=== PATIENT | male | born 1950 | race Caucasian/White ===

== ENCOUNTER 2017-05-16 16:43 | Emergency (ER) | payer OTHER, MEDICARE ==
[2017-05-16 16:53] VITALS: TEMP 98.5
[2017-05-16] MEDS ORDERED: PROPARACAINE 0.5% OPHTH DROPS 15 ML BTL LEFT EYE STA (17:21)
[2017-05-16] MEDS ORDERED: MOXIFLOXACIN HCL 0.5% DROPS 3 ML BTL LEFT EYE ONE (17:43)
--- NOTE | 2017-05-16 17:43 | ED ---
Eye Problem HPI - General Chief complaint: Eye Problems Stated complaint: Eye Problems Time Seen by Provider: 05/16/17 16:52 Source: patient Mode of arrival: ambulatory Limitations: no limitations - History of Present Illness Initial comments: 66 year oldcomplaining of left eye irritation for the last day. Patient states he was cleaning his windows and something fell in his eye and he tried to flush it out. Patient states he still had irritations a went to urgent care was put on tobramycin. Patient states it did look in his eye for an abrasion and nothing was noted. Patient states is getting worse with straining water very tender and scratchy and irritated feeling. Patient states it is sensitive to the light but no visual changes. No mucousy drainage. - Related Data Home Medications Medication Instructions Recorded Confirmed No Known Home Medications [No 05/16/17 05/16/17 Known Home Medications] Allergies Allergy/AdvReac Type Severity Reaction Status Date / Time No Known Allergies Allergy Verified 05/16/17 16:53 Review of Systems ROS Statement: Those systems with pertinent positive or pertinent negative responses have been documented in the HPI. ROS Other: All systems not noted in ROS Statement are negative. Constitutional: Denies: fever Eyes: Reports: eye pain (Left sided with redness and drainage), eye discharge ( left side). Denies: vision change Past Medical History Past Medical History: No Reported History History of Any Multi-Drug Resistant Organisms: None Reported Additional Past Surgical History / Comment(s): neck surgery Past Psychological History: No Psychological Hx Reported Smoking Status: Never smoker Past Alcohol Use History: Occasional Past Drug Use History: None Reported General Exam Limitations: no limitations General appearance: alert, in no apparent distress Eye exam: Present: PERRL, EOMI, conjunctival injection (left). Absent: scleral icterus, periorbital swelling Pupils: Present: normal accommodation ENT exam: Present: normal exam, mucous membranes moist Neck exam: Present: normal inspection. Absent: tenderness, meningismus, lymphadenopathy Course Vital Signs 05/16/17 16:50 Temperature 98.5 F Pulse Rate 89 Respiratory 18 Rate Blood Pressure 158/83 O2 Sat by Pulse 98 Oximetry Procedures - Procedures Initial comment: patient was prepped with normal saline proparacaine and fluorescein. One small abrasion noted around 10:00 in the left eye. No other abrasions or foreign bodies were noted 1 drop of Vigamox was given patient tolerated it well. Medical Decision Making - Medical Decision Making after visualizing a corneal abrasion patient will be still continuing antibiotic however unable change it from tobramycin to Vigamox at this time. Patient should follow-up with ophthalmology on Thursday for further evaluation. Patient to return sooner if any problems. Disposition Clinical Impression: Corneal abrasion, left Disposition: HOME SELF-CARE Condition: Good Instructions: Abrasion (ED) Referrals: Danilo Flores MD [Primary Care Provider] - 1-2 days Andrez Peñaloza MD [STAFF PHYSICIAN] - 1-2 days Time of Disposition: 17:51
[2017-05-16 18:04] VITALS: BP 136/68; PULSE 78; RESP 20
== END 2017-05-16 18:04 | disposition home or self-care (01) ==
LOC: EC 16:43
DX: S05.02XA Injury of conjunctiva and corneal abrasion without foreign body, left eye, initial encounter (principal); W22.8XXA Striking against or struck by other objects, initial encounter
CPT/HCPCS: 99283

== ENCOUNTER 2020-05-16 17:45 | Emergency (ER) | payer MEDICARE, OTHER ==
[2020-05-16] MEDS ORDERED: SODIUM CHLORIDE 0.9% 1,000 ML IV STA ×2 (18:02)
[2020-05-16] MEDS ORDERED: SODIUM CHLORIDE 0.9% 500 ML 500 ML IV STA (18:02)
--- NOTE | 2020-05-16 18:03 | ED ---
Syncope HPI - General Chief Complaint: Syncope Stated Complaint: Syncope Time Seen by Provider: 05/16/20 18:00 Source: patient, EMS, RN notes reviewed, old records reviewed Mode of arrival: EMS Limitations: no limitations - History of Present Illness Initial Comments: This is a 69-year-old male DF for evaluation of a near syncopal event. Patient did golf today with pain with some friends after [place] and almost passed out will get into his chair go to the bathroom patient has no recent travel history or sick contacts and currently is without complaint no headache chest pain shortness of breath or abdominal pain. Patient has had 2 episodes of to the syncope prior to his life. MD Complaint: almost passed out, other (Near syncopal event) -: hour(s) Prodromal Symptoms: lightheaded, diaphoresis -: second(s) Witnessed: yes - by bystander Injuries Sustained Associated with Event: None Current Symptoms: back to baseline History: previous syncopal episode Context: standing up Treatments Prior to Arrival: none - Related Data Home Medications Medication Instructions Recorded Confirmed No Known Home Medications 05/16/17 05/16/17 Allergies Allergy/AdvReac Type Severity Reaction Status Date / Time No Known Allergies Allergy Verified 05/16/17 16:53 Review of Systems ROS Statement: Those systems with pertinent positive or pertinent negative responses have been documented in the HPI. ROS Other: All systems not noted in ROS Statement are negative. Past Medical History Past Medical History: Hypertension History of Any Multi-Drug Resistant Organisms: None Reported Additional Past Surgical History / Comment(s): neck surgery Past Psychological History: No Psychological Hx Reported Smoking Status: Never smoker Past Alcohol Use History: Daily Past Drug Use History: Marijuana General Exam Limitations: no limitations General appearance: alert, in no apparent distress Head exam: Present: atraumatic, normocephalic, normal inspection Eye exam: Present: normal appearance, PERRL, EOMI. Absent: scleral icterus, conjunctival injection, periorbital swelling ENT exam: Present: normal exam, mucous membranes moist Neck exam: Present: normal inspection. Absent: tenderness, meningismus, lymphadenopathy Respiratory exam: Present: normal lung sounds bilaterally. Absent: respiratory distress, wheezes, rales, rhonchi, stridor Cardiovascular Exam: Present: regular rate, normal rhythm, normal heart sounds. Absent: systolic murmur, diastolic murmur, rubs, gallop, clicks GI/Abdominal exam: Present: soft, normal bowel sounds. Absent: distended, tenderness, guarding, rebound, rigid Extremities exam: Present: normal inspection, full ROM, normal capillary refill. Absent: tenderness, pedal edema, joint swelling, calf tenderness Back exam: Present: normal inspection Neurological exam: Present: alert, oriented X3, CN II-XII intact Psychiatric exam: Present: normal affect, normal mood Skin exam: Present: warm, dry, intact, normal color. Absent: rash Course Vital Signs 05/16/20 17:46 Temperature 96.9 F L Pulse Rate 64 Respiratory 17 Rate Blood Pressure 153/82 O2 Sat by Pulse 98 Oximetry - Reevaluation(s) Reevaluation #1: 05/16/20 19:12 Medical records reviewed Reevaluation #2: 05/16/20 19:12 Patient feels well here in the ER with no acute complaints Reevaluation #3: 05/16/20 19:12 Patient informed results no recurrent syncope here in the ER EKG Findings - EKG Comments: EKG Findings:: EKG shows sinus a 63 TN 144 QRS 92 QTC 419 Medical Decision Making - Lab Data Result diagrams: 05/16/20 18:17 05/16/20 18:17 Lab Results 05/16/20 05/16/20 05/16/20 Range/Units 18:17 18:17 18:17 WBC 6.1 (3.8-10.6) k/uL RBC 4.68 (4.30-5.90) m/uL Hgb 14.5 (13.0-17.5) gm/dL Hct 43.2 (39.0-53.0) % MCV 92.3 (80.0-100.0) fL MCH 30.9 (25.0-35.0) pg MCHC 33.4 (31.0-37.0) g/dL RDW 13.1 (11.5-15.5) % Plt Count 168 (150-450) k/uL Neutrophils % 73 % Lymphocytes % 18 % Monocytes % 6 % Eosinophils % 1 % Basophils % 0 % Neutrophils # 4.5 (1.3-7.7) k/uL Lymphocytes # 1.1 (1.0-4.8) k/uL Monocytes # 0.3 (0-1.0) k/uL Eosinophils # 0.1 (0-0.7) k/uL Basophils # 0.0 (0-0.2) k/uL PT 10.4 (9.0-12.0) sec INR 1.0 (<1.2) APTT 20.1 L (22.0-30.0) sec D-Dimer 0.41 (<0.60) mg/L FEU Sodium 136 L (137-145) mmol/L Potassium 4.1 (3.5-5.1) mmol/L Chloride 105 (98-107) mmol/L Carbon Dioxide 23 (22-30) mmol/L Anion Gap 8 mmol/L BUN 20 (9-20) mg/dL Creatinine 1.04 (0.66-1.25) mg/dL Est GFR (CKD-EPI)AfAm 84 (>60 ml/min/1.73 sqM) Est GFR (CKD-EPI)NonAf 72 (>60 ml/min/1.73 sqM) Glucose 164 H (74-99) mg/dL Calcium 8.7 (8.4-10.2) mg/dL Magnesium 1.9 (1.6-2.3) mg/dL Total Bilirubin 0.7 (0.2-1.3) mg/dL AST 30 (17-59) U/L ALT 24 (4-49) U/L Alkaline Phosphatase 41 (38-126) U/L Creatine Kinase 208 H (55-170) U/L CK-MB (CK-2) (0.0-2.4) ng/mL Troponin I (0.000-0.034) ng/mL Total Protein 6.4 (6.3-8.2) g/dL Albumin 4.0 (3.5-5.0) g/dL 05/16/20 Range/Units 18:17 WBC (3.8-10.6) k/uL RBC (4.30-5.90) m/uL Hgb (13.0-17.5) gm/dL Hct (39.0-53.0) % MCV (80.0-100.0) fL MCH (25.0-35.0) pg MCHC (31.0-37.0) g/dL RDW (11.5-15.5) % Plt Count (150-450) k/uL Neutrophils % % Lymphocytes % % Monocytes % % Eosinophils % % Basophils % % Neutrophils # (1.3-7.7) k/uL Lymphocytes # (1.0-4.8) k/uL Monocytes # (0-1.0) k/uL Eosinophils # (0-0.7) k/uL Basophils # (0-0.2) k/uL PT (9.0-12.0) sec INR (<1.2) APTT (22.0-30.0) sec D-Dimer (<0.60) mg/L FEU Sodium (137-145) mmol/L Potassium (3.5-5.1) mmol/L Chloride (98-107) mmol/L Carbon Dioxide (22-30) mmol/L Anion Gap mmol/L BUN (9-20) mg/dL Creatinine (0.66-1.25) mg/dL Est GFR (CKD-EPI)AfAm (>60 ml/min/1.73 sqM) Est GFR (CKD-EPI)NonAf (>60 ml/min/1.73 sqM) Glucose (74-99) mg/dL Calcium (8.4-10.2) mg/dL Magnesium (1.6-2.3) mg/dL Total Bilirubin (0.2-1.3) mg/dL AST (17-59) U/L ALT (4-49) U/L Alkaline Phosphatase (38-126) U/L Creatine Kinase (55-170) U/L CK-MB (CK-2) 3.7 H (0.0-2.4) ng/mL Troponin I <0.012 (0.000-0.034) ng/mL Total Protein (6.3-8.2) g/dL Albumin (3.5-5.0) g/dL Disposition Clinical Impression: Near syncope Disposition: HOME SELF-CARE Condition: Good Instructions (If sedation given, give patient instructions): Near Syncope (ED) Is patient prescribed a controlled substance at d/c from ED?: No Referrals: Danilo Flores MD [Primary Care Provider] - 1-2 days
[2020-05-16 18:34] LABS: Basophils % (A) 0 %; Eosinophils # (A) 0.1 k/uL (0-0.7); Eosinophils % (A) 1 %; HCT 43.2 % (39.0-53.0); HGB 14.5 gm/dL (13.0-17.5); Lymphocytes # (A) 1.1 k/uL (1.0-4.8); Lymphocytes % (A) 18 %; MCH 30.9 pg (25.0-35.0); MCHC 33.4 g/dL (31.0-37.0); MCV 92.3 fL (80.0-100.0); Mean Platelet Volume 7.6; Monocytes # (A) 0.3 k/uL (0-1.0); Monocytes % (A) 6 %; Neutrophils # (A) 4.5 k/uL (1.3-7.7); Neutrophils % (A) 73 %; Platelet Count 168 k/uL (150-450); RBC 4.68 m/uL (4.30-5.90); RDW 13.1 % (11.5-15.5); WBC 6.1 k/uL (3.8-10.6)
[2020-05-16 18:45] LABS: Calcium 8.7 mg/dL (8.4-10.2); Magnesium 1.9 mg/dL (1.6-2.3); Potassium 4.1 mmol/L (3.5-5.1); Total Bilirubin 0.7 mg/dL (0.2-1.3); Total Protein 6.4 g/dL (6.3-8.2)
[2020-05-16 18:57] LABS: Creatine Kinase MB 3.7 ng/mL (0.0-2.4); Troponin I <0.012 ng/mL (0.000-0.034)
[2020-05-16 18:59] LABS: D-Dimer 0.41 mg/L FEU (<0.60); Prothrombin Time 10.4 sec (9.0-12.0)
[2020-05-16 19:06] LABS: Partial Thromboplastin Time 20.1 sec (22.0-30.0)
[2020-05-16 20:01] VITALS: BP 122/79; PULSE 60; RESP 18; TEMP 97.3
== END 2020-05-16 20:00 | disposition home or self-care (01) ==
LOC: EC 17:45
DX: R55 Syncope and collapse (principal); R42 Dizziness and giddiness; R61 Generalized hyperhidrosis
CPT/HCPCS: 36415; 80053; 82550; 82553; 83735; 84484; 85025; 85379; 85610; 85730; 93005; 96360; 99285

== ENCOUNTER 2021-04-22 21:22 | Emergency (ER) | payer MEDICARE ==
[2021-04-22 21:27] VITALS: RESP 18
--- NOTE | 2021-04-22 22:03 | ED ---
Chest Pain HPI - General Chief Complaint: Chest Pain Stated Complaint: Chest Pain Time Seen by Provider: 04/22/21 21:41 Source: patient, RN notes reviewed, old records reviewed Mode of arrival: wheelchair Limitations: no limitations - History of Present Illness Initial Comments: This is a 70-year-old male to the ER for evaluation of some substernal disc omfort left and right inferior arm discomfort sweating. Symptoms are just diffuse and resolve slightly after while he was getting ready for bed. Patient presents to the ER for evaluation. History of high blood pressure he has had recently elevated blood sugar and will start on metformin. Patient states that for make some uneasiness stomach with some queasiness and cramping. Otherwise been feeling well no fatigue no other complaints MD Complaint: chest pain, other (Bilateral arm paresthesias) -: minutes(s) Onset: during rest Pain Location: substernal Pain Radiation: RUE, LUE Severity: mild Severity scale (1-10): 2 Quality: tightness Consistency: intermittent, now resolved Improves With: nothing Worsens With: nothing Context: other (none) Anginal Symptoms: diaphoresis Other Symptoms: palpitations Treatments Prior to Arrival: none - Related Data Home Medications Medication Instructions Recorded Confirmed Atorvastatin Calcium [Lipitor] 20 mg PO HS 04/22/21 04/22/21 Bisoprol/Hydrochlorothiazide [Ziac 1 tab PO DAILY 04/22/21 04/22/21 10-6.25 MG] Celecoxib [CeleBREX] 200 mg PO DAILY 04/22/21 04/22/21 Losartan Potassium [Cozaar] 50 mg PO DAILY 04/22/21 04/22/21 metFORMIN HCL [Glucophage] 1,000 mg PO BID-W/MEALS 04/22/21 04/22/21 Allergies Allergy/AdvReac Type Severity Reaction Status Date / Time No Known Allergies Allergy Verified 04/22/21 22:37 Review of Systems ROS Statement: Those systems with pertinent positive or pertinent negative responses have been documented in the HPI. ROS Other: All systems not noted in ROS Statement are negative. EKG Findings - EKG Comments: EKG Findings:: EKG is sinus bradycardia 57, [place] 144 QRS 80 QTC 390 Past Medical History Past Medical History: Hypertension History of Any Multi-Drug Resistant Organisms: None Reported Additional Past Surgical History / Comment(s): neck surgery Past Psychological History: No Psychological Hx Reported Smoking Status: Never smoker Past Alcohol Use History: Daily Past Drug Use History: Marijuana General Exam Limitations: no limitations General appearance: alert, in no apparent distress Head exam: Present: atraumatic, normocephalic, normal inspection Eye exam: Present: normal appearance, PERRL, EOMI. Absent: scleral icterus, conjunctival injection, periorbital swelling ENT exam: Present: normal exam, mucous membranes moist Neck exam: Present: normal inspection. Absent: tenderness, meningismus, lymphadenopathy Respiratory exam: Present: normal lung sounds bilaterally. Absent: respiratory distress, wheezes, rales, rhonchi, stridor Cardiovascular Exam: Present: regular rate, normal rhythm, normal heart sounds. Absent: systolic murmur, diastolic murmur, rubs, gallop, clicks GI/Abdominal exam: Present: soft, normal bowel sounds. Absent: distended, tenderness, guarding, rebound, rigid Extremities exam: Present: normal inspection, full ROM, normal capillary refill. Absent: tenderness, pedal edema, joint swelling, calf tenderness Back exam: Present: normal inspection Neurological exam: Present: alert, oriented X3, CN II-XII intact Psychiatric exam: Present: normal affect, normal mood Skin exam: Present: warm, dry, intact, normal color. Absent: rash Course Vital Signs 04/22/21 21:24 Temperature 97.7 F Pulse Rate 60 Respiratory 18 Rate Blood Pressure 133/73 O2 Sat by Pulse 98 Oximetry - Reevaluation(s) Reevaluation #1: 04/22/21 23:34 Medical record is reviewed Reevaluation #2: 04/22/21 23:34 Patient has remained a symptomatically throughout ER stay Reevaluation #3: 04/22/21 23:35 Patient feels good for discharge home Reevaluation #4: 04/22/21 23:35 Patient family informed results and questions answered - Consultations Consultation #1: Spoke with Dr. Flores will keep follow-up on patient Chest Pain MDM - MDM 70 male who does have history of high blood pressure no, recently diagnosed is a prediabetic and started on metformin coming in with some on easiness, feelings of diaphoresis and arm pain. Patient's EKG and troponin are negative here. Patient is a symptomatically felt ER stay and prefers discharge Disposition Clinical Impression: Atypical chest pain Disposition: HOME SELF-CARE Condition: Good Instructions (If sedation given, give patient instructions): Chest Pain (ED) Is patient prescribed a controlled substance at d/c from ED?: No Referrals: Danilo Flores MD [Primary Care Provider] - 1-2 days
[2021-04-22 22:16] LABS: Basophils % (A) 1 %; Eosinophils # (A) 0.1 k/uL (0-0.7); Eosinophils % (A) 3 %; HCT 42.7 % (39.0-53.0); HGB 14.4 gm/dL (13.0-17.5); Lymphocytes # (A) 1.3 k/uL (1.0-4.8); Lymphocytes % (A) 28 %; MCH 31.4 pg (25.0-35.0); MCHC 33.7 g/dL (31.0-37.0); MCV 93.2 fL (80.0-100.0); Mean Platelet Volume 7.8; Monocytes # (A) 0.3 k/uL (0-1.0); Monocytes % (A) 7 %; Neutrophils # (A) 2.9 k/uL (1.3-7.7); Neutrophils % (A) 59 %; Platelet Count 195 k/uL (150-450); RBC 4.58 m/uL (4.30-5.90); RDW 13.2 % (11.5-15.5); WBC 4.8 k/uL (3.8-10.6)
[2021-04-22 22:24] LABS: Partial Thromboplastin Time 24.1 sec (22.0-30.0); Prothrombin Time 10.6 sec (9.0-12.0)
[2021-04-22 22:28] LABS: ALT 24 U/L (4-49); AST 28 U/L (17-59); African American GFR (CKD) >90 (>60 ml/min/1.73 sqM); Albumin 4.1 g/dL (3.5-5.0); Alkaline Phosphatase 40 U/L (38-126); Anion Gap 9 mmol/L; Blood Urea Nitrogen 39 mg/dL (9-20); Calcium 9.4 mg/dL (8.4-10.2); Carbon Dioxide 28 mmol/L (22-30); Chloride 102 mmol/L (98-107); Creatine Kinase 110 U/L (55-170); Glucose 113 mg/dL (74-99); Lipase 176 U/L (23-300); Magnesium 1.6 mg/dL (1.6-2.3); Non-African American GFR(CKD) 80 (>60 ml/min/1.73 sqM); Potassium 4.1 mmol/L (3.5-5.1); Sodium 139 mmol/L (137-145); Total Bilirubin 0.5 mg/dL (0.2-1.3); Total Protein 6.5 g/dL (6.3-8.2)
--- NOTE | 2021-04-22 23:22 | XR ---
EXAMINATION TYPE: XR chest 2V DATE OF EXAM: 04/22/2021 COMPARISON: NONE HISTORY: Chest pain TECHNIQUE: 2 views FINDINGS: Heart and mediastinum are normal. Lungs are clear of infiltrate. There is no heart failure. There are chest leads. There is cervical spine fusion surgery. IMPRESSION: No active cardiopulmonary disease. Normal heart.
[2021-04-22 23:58] VITALS: BP 122/80; PULSE 61; TEMP 98.1
[2021-04-23 15:41] LABS: Hemoglobin A1C 5.6 % (4.0-6.0)
== END 2021-04-22 23:52 | disposition home or self-care (01) ==
LOC: EC 21:22
DX: R07.89 Other chest pain (principal); I10 Essential (primary) hypertension; F12.90 Cannabis use, unspecified, uncomplicated; Z79.84 Long term (current) use of oral hypoglycemic drugs; Z79.1 Long term (current) use of non-steroidal anti-inflammatories (NSAID); Z79.899 Other long term (current) drug therapy
CPT/HCPCS: 36415; 71046; 80053; 82550; 83036; 83690; 83735; 83880; 84484; 85025; 85610; 85730; 93005; 99285

== ENCOUNTER 2023-03-24 16:45 | Inpatient (IN) | payer MEDICARE ==
[2023-03-24 17:52] LABS: Basophils % (A) 0 %; Eosinophils # (A) 0.2 k/uL (0-0.7); Eosinophils % (A) 3 %; HCT 40.5 % (39.0-53.0); HGB 13.6 gm/dL (13.0-17.5); Lymphocytes # (A) 0.7 k/uL (1.0-4.8); Lymphocytes % (A) 10 %; MCH 30.6 pg (25.0-35.0); MCHC 33.6 g/dL (31.0-37.0); Mean Platelet Volume 7.3; Monocytes # (A) 0.5 k/uL (0-1.0); Monocytes % (A) 7 %; Neutrophils # (A) 5.1 k/uL (1.3-7.7); Neutrophils % (A) 78 %; Platelet Count 224 k/uL (150-450); RBC 4.45 m/uL (4.30-5.90); RDW 12.7 % (11.5-15.5); WBC 6.6 k/uL (3.8-10.6)
[2023-03-24 18:13] LABS: ALT 18 U/L (4-49); AST 20 U/L (17-59); African American GFR (CKD) 27 (>60 ml/min/1.73 sqM); Albumin 4.2 g/dL (3.5-5.0); Alkaline Phosphatase 67 U/L (38-126); Anion Gap 11 mmol/L; Blood Urea Nitrogen 44 mg/dL (9-20); Calcium 8.9 mg/dL (8.4-10.2); Carbon Dioxide 21 mmol/L (22-30); Chloride 106 mmol/L (98-107); Glucose 105 mg/dL (74-99); Non-African American GFR(CKD) 23 (>60 ml/min/1.73 sqM); Sodium 138 mmol/L (137-145); Total Bilirubin 0.4 mg/dL (0.2-1.3); Total Protein 7.5 g/dL (6.3-8.2)
--- NOTE | 2023-03-24 18:22 | ED ---
General Adult HPI - General Chief complaint: Recheck/Abnormal Lab/Rx Stated complaint: Recheck Time Seen by Provider: 03/24/23 17:55 Source: patient, RN notes reviewed, old records reviewed Mode of arrival: ambulatory Limitations: no limitations - History of Present Illness Initial comments: This is a 72-year-old male who presents emergency department after having gone to see his doctor and had blood work drawn. Dr. Hidalgo told the patient to go to the hospital because his renal failure. Patient states he went to see his doctor because over the last couple of weeks is becoming weaker and more fatigued and just tired overall. Patient denies any chest pain palpitations difficulty breathing shortness breath per patient denies any recent fever chills or cough per patient denies any dysuria hematuria urinary frequency. Patient denies any abdominal patient states he has been taking Celebrex for quite a while as well as taking angiotensin receptor sigrid. Patient denies any injury or trauma - Related Data Home Medications Medication Instructions Recorded Confirmed Losartan Potassium [Cozaar] 50 mg PO DAILY 04/22/21 03/24/23 Allergies Allergy/AdvReac Type Severity Reaction Status Date / Time No Known Allergies Allergy Verified 03/24/23 18:55 Review of Systems ROS Statement: Those systems with pertinent positive or pertinent negative responses have been documented in the HPI. ROS Other: All systems not noted in ROS Statement are negative. Past Medical History Past Medical History: Hypertension, Osteoarthritis (OA) History of Any Multi-Drug Resistant Organisms: None Reported Additional Past Surgical History / Comment(s): neck surgery Past Psychological History: No Psychological Hx Reported Smoking Status: Never smoker Past Alcohol Use History: Daily Past Drug Use History: Marijuana General Exam - General Exam Comments Initial Comments: GENERAL: Patient is well-developed and well-nourished. Patient is nontoxic and well-hydrated and is in no acute distress. ENT: Neck is soft and supple. No significant lymphadenopathy is noted. Oropharynx is clear. Moist mucous membranes. Neck has full range of motion without eliciting any pain. EYES: The sclera were anicteric and conjunctiva were pink and moist. Extraocular mov ements were intact and pupils were equal round and reactive to light. Eyelids were unremarkable. PULMONARY: Unlabored respirations. Good breath sounds bilaterally. No audible rales rhonchi or wheezing was noted. CARDIOVASCULAR: There is a regular rate and rhythm without any murmurs gallops or rubs. ABDOMEN: Soft and nontender with normal bowel sounds. SKIN: Skin is clear with no lesions or rashes and otherwise unremarkable. NEUROLOGIC: Patient is alert and oriented x3. Cranial nerves II through XII are grossly intact. Motor and sensory are also intact. Normal speech, volume and content. Symmetrical smile. MUSCULOSKELETAL: Normal extremities with adequate strength and full range of motion. No lower extremity swelling or edema. No calf tenderness. LYMPHATICS: No significant lymphadenopathy is noted PSYCHIATRIC: Normal psychiatric evaluation. Limitations: no limitations Course Vital Signs 03/24/23 17:03 Temperature 98.9 F Pulse Rate 74 Respiratory 20 Rate Blood Pressure 164/75 O2 Sat by Pulse 98 Oximetry Medical Decision Making - Medical Decision Making EKG was interpreted by myself shows a sinus rhythm at 75 bpm CO interval 147 100 one QT interval 346 QTC is 375 per patient's EKG shows no ST segment elevation or depression Was pt. sent in by a medical professional or institution (, PA, CHAIN MORTISER OPERATOR, urgent care, hospital, or intermediate...) When possible be specific @ -Patient's primary medical care doctor sent him into the hospital Did you speak to anyone other than the patient for history (EMS, parent, family, police, friend...)? What history was obtained from this source @ -No Did you review nursing and triage notes (agree or disagree)? Why? @ -I reviewed and agree with nursing and triage notes Were old charts reviewed (outside hosp., previous admission, EMS record, old EKG, old radiological studies, urgent care reports/EKG's, intermediate records)? Report findings @ -I reviewed prior lab work from prior charts on this patient Differential Diagnosis (chest pain, altered mental status, abdominal pain women, abdominal pain men, vaginal bleeding, weakness, fever, dyspnea, syncope, headache, dizziness, GI bleed, back pain, seizure, CVA, palpatations, mental health, musculoskeletal)? @ -Differential Weakness: Hypoglycemia, shock, sepsis, hyponatremia, anemia, acute renal failure, infection, VA, ETOH, adverse medicine reaction, overdose, stroke, this is not meant to be an all-inclusive list. EKG interpreted by me (3pts min.). @ -As above X-rays interpreted by me (1pt min.). @ -None done CT interpreted by me (1pt min.). @ -None done U/S interpreted by me (1pt. min.). @ -None done What testing was considered but not performed or refused? (CT, X-rays, U/S, labs)? Why? @ -None What meds were considered but not given or refused? Why? @ -None Did you discuss the management of the patient with other professionals (professionals i.e. Dr., PA, CHAIN MORTISER OPERATOR, lab, RT, psych nurse, social worker clinical, medical communication specialist, teacher, wildlife officer, disease case manager)? Give summary @ -I spoke with [facility] hospitalist and they agreed to admit the patient admitted the patient consult nephrology. Patient had no infection. Was smoking cessation discussed for >3mins.? @ -No Was critical care preformed (if so, how long)? @ -No Were there social determinants of health that impacted care today? How? (Homelessness, low income, unemployed, alcoholism, drug addiction, transpo rtation, low edu. Level, literacy, decrease access to med. care, shelter, rehab)? @ -No Was there de-escalation of care discussed even if they declined (Discuss DNR or withdrawal of care, Hospice)? DNR status @ -No What co-morbidities impacted this encounter? (DM, HTN, Smoking, COPD, CAD, Cancer, CVA, ARF, Chemo, Hep., AIDS, mental health diagnosis, sleep apnea, morbid obesity)? @ -None Was patient admitted / discharged? Hospital course, mention meds given and route, prescriptions, significant lab abnormalities, going to OR and other pertinent info. @ -Patient remained fatigued and weak during the ED stay the patient does not have any new symptoms. Patient's creatinine was 2.6 which is elevated from prior normal levels. Undiagnosed new problem with uncertain prognosis? @ -No Drug Therapy requiring intensive monitoring for toxicity (Heparin, Nitro, Insulin, Cardizem)? @ -No Were any procedures done? @ -No Diagnosis/symptom? @ -Acute renal failure Acute, or Chronic, or Acute on Chronic? @ -Acute Uncomplicated (without systemic symptoms) or Complicated (systemic symptoms)? @ -Complicated Side effects of treatment? @ -No Exacerbation, Progression, or Severe Exacerbation? @ -No Poses a threat to life or bodily function? How? (Chest pain, [place], VA, pneumonia, PE, COPD, DKA, ARF, appy, cholecystitis, CVA, Diverticulitis, Homicidal, Suicidal, threat to staff... and all critical care pts) @ -Yes this could lead to electrolyte abnormalities and arrhythmias - Lab Data Result diagrams: 03/24/23 17:30 03/24/23 17:30 Lab Results 03/24/23 03/24/23 03/24/23 Range/Units 17:30 17:30 18:11 WBC 6.6 (3.8-10.6) k/uL RBC 4.45 (4.30-5.90) m/uL Hgb 13.6 (13.0-17.5) gm/dL Hct 40.5 (39.0-53.0) % MCV 91.0 (80.0-100.0) fL MCH 30.6 (25.0-35.0) pg MCHC 33.6 (31.0-37.0) g/dL RDW 12.7 (11.5-15.5) % Plt Count 224 (150-450) k/uL MPV 7.3 Neutrophils % 78 % Lymphocytes % 10 % Monocytes % 7 % Eosinophils % 3 % Basophils % 0 % Neutrophils # 5.1 (1.3-7.7) k/uL Lymphocytes # 0.7 L (1.0-4.8) k/uL Monocytes # 0.5 (0-1.0) k/uL Eosinophils # 0.2 (0-0.7) k/uL Basophils # 0.0 (0-0.2) k/uL Sodium 138 (137-145) mmol/L Potassium 4.0 (3.5-5.1) mmol/L Chloride 106 (98-107) mmol/L Carbon Dioxide 21 L (22-30) mmol/L Anion Gap 11 mmol/L BUN 44 H (9-20) mg/dL Creatinine 2.62 H (0.66-1.25) mg/dL Est GFR (CKD-EPI)AfAm 27 (>60 ml/min/1.73 sqM) Est GFR (CKD-EPI)NonAf 23 (>60 ml/min/1.73 sqM) Glucose 105 H (74-99) mg/dL Calcium 8.9 (8.4-10.2) mg/dL Total Bilirubin 0.4 (0.2-1.3) mg/dL AST 20 (17-59) U/L ALT 18 (4-49) U/L Alkaline Phosphatase 67 (38-126) U/L Total Protein 7.5 (6.3-8.2) g/dL Albumin 4.2 (3.5-5.0) g/dL Urine Color Light Yellow Urine Appearance Clear (Clear) Urine pH 5.5 (5.0-8.0) Ur Specific [place] 1.015 (1.001-1.035) Urine Protein 1+ H (Negative) Urine Glucose (UA) 2+ H (Negative) Urine Ketones Negative (Negative) Urine Blood Small H (Negative) Urine Nitrite Negative (Negative) Urine Bilirubin Negative (Negative) Urine Urobilinogen <2.0 (<2.0) mg/dL Ur Leukocyte Esterase Negative (Negative) Urine RBC <1 (0-5) /hpf Urine WBC 2 (0-5) /hpf Urine Mucus Rare H (None) /hpf Disposition Clinical Impression: Acute renal failure Disposition: ADMITTED IP TO THIS HOSP Referrals: Jasmeet Hidalgo DO [Primary Care Provider] - 1-2 days Time of Disposition: 20:16
[2023-03-24 19:18] LABS: Appearance,Urine Clear (Clear); Bilirubin,Urine Negative (Negative); Blood,Urine Small (Negative); Color,Urine Light Yellow; Glucose,Urine (UA) 2+ (Negative); Ketones,Urine Negative (Negative); Leukocyte Esterase,Urine Negative (Negative); Mucus,Urine Rare /hpf; Nitrite,Urine Negative (Negative); PH, Urine 5.5 (5.0-8.0); Protein,Urine 1+ (Negative); RBC,Urine <1 /hpf (0-5); Specific Gravity,Urine 1.015 (1.001-1.035); Urobilinogen,Urine <2.0 mg/dL (<2.0); WBC,Urine 2 /hpf (0-5)
[2023-03-24] MEDS ORDERED: SODIUM CHLORIDE 0.9% 1,000 ML IV ONE (20:22)
[2023-03-25 10:01] LABS: African American GFR (CKD) 32 (>60 ml/min/1.73 sqM); Anion Gap 10 mmol/L; Blood Urea Nitrogen 37 mg/dL (9-20); Calcium 8.6 mg/dL (8.4-10.2); Carbon Dioxide 22 mmol/L (22-30); Chloride 107 mmol/L (98-107); Glucose 214 mg/dL (74-99); Non-African American GFR(CKD) 27 (>60 ml/min/1.73 sqM); Potassium 4.1 mmol/L (3.5-5.1); Sodium 139 mmol/L (137-145)
--- NOTE | 2023-03-25 13:48 | P.HPIM ---
History of Present Illness 72-year-old male was sent in because of elevated creatinine patient BUN was around 44 and creatinine was 2.62. Patient denied any nausea vomiting diarrhea patient recent creatinine is around 0.8. A she is found to have 1+ protein and protein in the urine patient does have glucose in the urine as well. no casts were seen Patient was started on IV fluids with the minimal improvement of serum creatinine from 2.6-2.28. Patient denied any oliguria. Patient doesn't have any symptoms at this time. Patient is on losartan for long time. Patient did did complain of for some episodes of dizziness whenever he gets up although his blood pressure is within normal limits. Orthostatic vitals will be obtained. REVIEW OF SYSTEMS: CONSTITUTIONAL: No fever, no malaise, no fatigue. HEENT: No recent visual problems or hearing problems. Denied any sore throat. CARDIOVASCULAR: No chest pain, orthopnea, PND, no palpitations, no syncope. PULMONARY: No shortness of breath, no cough, no hemoptysis. GASTROINTESTINAL: No diarrhea, no nausea, no vomiting, no abdominal pain. NEUROLOGICAL: No headaches, no weakness, no numbness. HEMATOLOGICAL: Denies any bleeding or petechiae. GENITOURINARY: Denies any burning micturition, frequency, or urgency. MUSCULOSKELETAL/RHEUMATOLOGICAL: Denies any joint pain, swelling, or any muscle pain. ENDOCRINE: Denies any polyuria or polydipsia. The rest of the 14-point review of systems is negative. PHYSICAL EXAMINATION: GENERAL: The patient is alert and oriented x3, not in any acute distress. Well developed, well nourished. HEENT: Pupils are round and equally reacting to light. EOMI. No scleral icterus. No conjunctival pallor. Normocephalic, atraumatic. No pharyngeal erythema. No thyromegaly. CARDIOVASCULAR: S1 and S2 present. No murmurs, rubs, or gallops. PULMONARY: Chest is clear to auscultation, no wheezing or crackles. ABDOMEN: Soft, nontender, nondistended, normoactive bowel sounds. No palpable organomegaly. MUSCULOSKELETAL: No joint swelling or deformity. EXTREMITIES: No cyanosis, clubbing, or pedal edema. NEUROLOGICAL: Gross neurological examination did not reveal any focal deficits. SKIN: No rashes. Assessment and plan -Acute renal failure: Possibly secondary to acute tubular necrosis may be secondary to hypotension, presently blood pressure is within normal limits will obtain orthostatic vitals. We will obtain renal ultrasound, urine random creat inine, urine random serum sodium, urine eosinophils, nephrology consultation. -Hypertension DVT prophylaxis: Early ambulation Past Medical History Past Medical History: Hypertension, Osteoarthritis (OA) History of Any Multi-Drug Resistant Organisms: None Reported Additional Past Surgical History / Comment(s): neck surgery Past Psychological History: No Psychological Hx Reported Smoking Status: Never smoker Past Alcohol Use History: Daily Additional Past Alcohol Use History / Comment(s): one drinks one drink with his for dinner usually a glass of wine Past Drug Use History: Marijuana Medications and Allergies Home Medications Medication Instructions Recorded Confirmed Type Losartan Potassium [Cozaar] 50 mg PO DAILY 04/22/21 03/24/23 History Allergies Allergy/AdvReac Type Severity Reaction Status Date / Time No Known Allergies Allergy Verified 03/24/23 18:55 Physical Exam Vitals: Vital Signs Temp Pulse Resp BP Pulse Ox 03/25/23 11:56 75 18 132/67 98 03/25/23 10:00 75 16 120/65 98 03/25/23 09:46 72 20 116/69 98 03/25/23 08:39 61 18 116/59 97 03/25/23 06:21 74 16 138/76 03/24/23 21:53 76 16 148/87 97 03/24/23 17:03 98.9 F 74 20 164/75 98 Intake and Output 03/24/23 03/25/23 03/25/23 22:59 06:59 14:59 Other: Weight 83.007 kg 83.007 kg Results CBC & Chem 7: 03/24/23 17:30 03/25/23 09:33 Labs: Abnormal Lab Results - Last 24 Hours (Table) 03/24/23 03/24/23 03/24/23 Range/Units 17:30 17:30 18:11 Lymphocytes # 0.7 L (1.0-4.8) k/uL Carbon Dioxide 21 L (22-30) mmol/L BUN 44 H (9-20) mg/dL Creatinine 2.62 H (0.66-1.25) mg/dL Glucose 105 H (74-99) mg/dL Urine Protein 1+ H (Negative) Urine Glucose (UA) 2+ H (Negative) Urine Blood Small H (Negative) Urine Mucus Rare H (None) /hpf 03/25/23 Range/Units 09:33 Lymphocytes # (1.0-4.8) k/uL Carbon Dioxide (22-30) mmol/L BUN 37 H (9-20) mg/dL Creatinine 2.28 H (0.66-1.25) mg/dL Glucose 214 H (74-99) mg/dL Urine Protein (Negative) Urine Glucose (UA) (Negative) Urine Blood (Negative) Urine Mucus (None) /hpf Thrombosis Risk Factor Assmnt - Choose All That Apply Each Risk Factor Represents 2 Points: Age 61-74 years Thrombosis Risk Factor Assessment Total Risk Factor Score: 2 Thrombosis Risk Factor Assessment Level: Low Risk
--- NOTE | 2023-03-25 20:02 | US ---
EXAMINATION TYPE: US kidneys/renal and bladder DATE OF EXAM: 03/25/2023 COMPARISON: NONE CLINICAL INDICATION: Male, 72 years old with history of PARI; pari EXAM MEASUREMENTS: Right Kidney: 11.8 x 5.9 x 5.6 cm Left Kidney: 13.5 x 5.7 x 6.9 cm Right Kidney: No hydronephrosis or masses seen Left Kidney: Echogenic area seen mid pole measuring 1.2 x 1.1 x 1.3cm Bladder: wnl. Limited due to being mostly empty. Bilateral Jets seen: No There is no evidence for hydronephrosis at this point in time. No masses are identified. The urin erika bladder is anechoic. Bilateral ureteral jets are seen. IMPRESSION: Nonobstructing calculus left kidney.
[2023-03-26] MEDS: SODIUM CHLORIDE 0.9% 1,000 ML IV SCH (07:00)
[2023-03-26] MEDS ORDERED: ACETAMINOPHEN TAB 325 MG TAB PO PRN (10:19)
[2023-03-26 11:00] LABS: BUN/Creat Ratio 13.96 Ratio (12.00-20.00); Blood Urea Nitrogen 32.1 mg/dL (9.0-27.0); Calcium 8.6 mg/dL (8.7-10.3); Carbon Dioxide 22.5 mmol/L (21.6-31.8); Chloride 109 mmol/L (96-109); Glucose 130 mg/dL (70-110); Potassium 3.9 mmol/L (3.5-5.5); Sodium 141 mmol/L (135-145)
--- NOTE | 2023-03-26 13:26 | P.NPCON ---
History of Present Illness - Reason for Consult acute renal failure - History of Present Illness Patient is a 72-year-old male with history of hypertension who is advised admission due to abnormal labs as outpatient. Serum creatinine was elevated at 2.6 mg/dL from a previous reading of 0.9 mg/dL in 2020. There is no previous history of kidney diseases Patient has been maintained on Celebrex and losartan for 3-4 years now. Blood pressure was not significantly low although a couple of readings of 1 16 mmHg for systolic is noted. Patient denies any urinary symptoms Patient states that he may have been working outside more than usual over the past few days. No history of nausea vomiting or diarrhea. Patient does report vague abdominal discomfort. Currently maintained on IV fluids and serum creatinine only improved slightly to 2.3 mg/dL. Ultrasound shows no evidence of hydronephrosis. Review of Systems As per HPI Past Medical History Past Medical History: Hypertension, Osteoarthritis (OA) History of Any Multi-Drug Resistant Organisms: None Reported Additional Past Surgical History / Comment(s): neck surgery Past Psychological History: No Psychological Hx Reported Smoking Status: Never smoker Past Alcohol Use History: Daily Additional Past Alcohol Use History / Comment(s): one drinks one drink with his for dinner usually a glass of wine Past Drug Use History: Marijuana Medications and Allergies Home Medications Medication Instructions Recorded Confirmed Type Losartan Potassium [Cozaar] 50 mg PO DAILY 04/22/21 03/24/23 History Allergies Allergy/AdvReac Type Severity Reaction Status Date / Time No Known Allergies Allergy Verified 03/24/23 18:55 Physical Exam Vitals: Vital Signs Temp Pulse Resp BP Pulse Ox 03/26/23 07:10 98.2 F 68 16 130/77 97 03/26/23 02:00 98.0 F 73 16 112/64 96 03/25/23 19:00 97.4 F L 78 16 137/68 97 03/25/23 18:00 97.7 F 78 18 137/73 98 03/25/23 13:35 97.6 F 73 18 128/70 98 Intake and Output 03/25/23 03/26/23 03/26/23 22:59 06:59 14:59 Intake Total 590 Balance 590 Intake: Oral 590 Other: Voiding Method Toilet Toilet # Voids 2 2 Patient is awake, alert oriented 3 No acute distress Examination of the heart S1 and S2 Examination of the lungs bilateral breath sounds are heard Abdomen is soft nontender Examination of lower extremities shows no evidence of edema BRAZER FURNACE exam grossly intact Results - Lab Results Most recent lab results Calcium 8.6 mg/dL (8.7-10.3) L 03/26/23 06:33 03/24/23 17:30 03/26/23 06:33 Assessment and Plan Assessment: 1. Acute kidney injury most likely related to Swan 2 inhibitor use in the setting of use of angiotensin receptor blockers with possible low blood pressure at home. Continue off of Celebrex and continue off of losartan as well. Ultrasound shows no evidence of obstruction and UA shows 1+ protein and trace blood. Continue with IV fluids 2. Hypertension with blood pressure Currently controlled. Continue off of angiotensin receptor blockers 3. Mild metabolic acidosis associated with acute kidney injury Plan: Continue with IV fluids Check urine for eosinophils Continue off of angiotensin receptor blockers and Swan 2 inhibitors. Avoid all NSAIDs Repeat labs in a.m. Avoid any other nephrotoxic agents Thank you for the consultation. We will continue to follow the patient with you during his hospitalization.
--- NOTE | 2023-03-26 16:49 | P.PN ---
Subjective Progress Note Date: 03/26/23 72-year-old male was sent in because of elevated creatinine patient BUN was around 44 and creatinine was 2.62. Patient denied any nausea vomiting diarrhea patient recent creatinine is around 0.8. A she is found to have 1+ protein and protein in the urine patient does have glucose in the urine as well. no casts were seen Patient was started on IV fluids with the minimal improvement of serum creatinine from 2.6-2.28. Patient denied any oliguria. Patient doesn't have any symptoms at this time. Patient is on losartan for long time. Patient did did complain of for some episodes of dizziness whenever he gets up although his blood pressure is within normal limits. Orthostatic vitals will be obtained. 03/26/2023 Patient is evaluated resting in bed. Nephrology on consultation. Patient continues with hydration and creatinine has slightly improved to 2.3. Urine eosinophils at 3. Abdomen/bladder ultrasound shows nonobstructive left renal calculus. Patient to be monitored overnight and f/u labs in AM. Continue to monitor for urinary retention. REVIEW OF SYSTEMS: CONSTITUTIONAL: No fever, no malaise, no fatigue. HEENT: No recent visual problems or hearing problems. Denied any sore throat. CARDIOVASCULAR: No chest pain, orthopnea, PND, no palpitations, no syncope. PULMONARY: No shortness of breath, no cough, no hemoptysis. GASTROINTESTINAL: No diarrhea, no nausea, no vomiting, no abdominal pain. NEUROLOGICAL: No headaches, no weakness, no numbness. PHYSICAL EXAMINATION: GENERAL: The patient is alert and oriented x3, not in any acute distress. Well developed, well nourished. HEENT: Pupils are round and equally reacting to light. EOMI. No scleral icterus. No conjunctival pallor. Normocephalic, atraumatic. No pharyngeal erythema. No thyromegaly. CARDIOVASCULAR: S1 and S2 present. No murmurs, rubs, or gallops. PULMONARY: Chest is clear to auscultation, no wheezing or crackles. ABDOMEN: Soft, nontender, nondistended, normoactive bowel sounds. No palpable organomegaly. MUSCULOSKELETAL: No joint swelling or deformity. EXTREMITIES: No cyanosis, clubbing, or pedal edema. NEUROLOGICAL: Gross neurological examination did not reveal any focal deficits. SKIN: No rashes. Assessment and plan -Acute renal failure: Possibly secondary to acute tubular necrosis may be se condary to hypotension, component of nephrotoxicity due to losartan -Hypertension currently normotensive -Osteoarthritis -Daily alcohol use with one glass of wine - DVT prophylaxis: Early ambulation Plan Continue off losartan and cox2 inhibitor at this time. Patient to continue on IV fluids and follow up AM labs. Nephrology following. The impression and plan of care has been dictated by Lo Ley, Nurse Practitioner as directed. Dr. Amie MD I have performed a history and physical examination and medical decision making of this patient, discussed the same with the dictator, and agree with the dictators assessment and plan as written, documented as a scribe. Based on total visit time, I have performed more than 50% of this visit. Objective - Vital Signs Vital signs: Vital Signs Temp 98.2 F 03/26/23 13:36 Pulse 80 03/26/23 13:36 Resp 16 03/26/23 13:36 BP 155/84 03/26/23 13:36 Pulse Ox 97 03/26/23 13:36 FiO2 Intake & Output 03/25/23 03/26/23 03/26/23 18:59 06:59 18:59 Intake Total 590 Balance 590 Weight 83.007 kg Intake: Oral 590 Other: Voiding Method Toilet Toilet # Voids 2 2 3 - Labs CBC & Chem 7: 03/24/23 17:30 03/26/23 06:33 Labs: Abnormal Lab Results - Last 24 Hours (Table) 03/26/23 Range/Units 06:33 BUN 32.1 H (9.0-27.0) mg/dL Creatinine 2.3 H (0.6-1.5) mg/dL Est GFR (CKD-EPI) 29 L (>=60) Glucose 130 H (70-110) mg/dL Calcium 8.6 L (8.7-10.3) mg/dL Assessment and Plan Time with Patient: Less than 30
[2023-03-26] MEDS: HEPARIN SODIUM,PORCINE/PF 5,000 UNIT/0.5 ML SYRINGE SQ SCH (21:43)
[2023-03-27] MEDS: SODIUM CHLORIDE 0.9% 1,000 ML IV SCH (06:18)
[2023-03-27 07:54] VITALS: BP 152/81; RESP 18; TEMP 97.9
[2023-03-27 08:12] VITALS: PULSE 73
[2023-03-27 08:53] LABS: Blood Urea Nitrogen 32.5 mg/dL (9.0-27.0); Calcium 8.6 mg/dL (8.7-10.3); Carbon Dioxide 22.5 mmol/L (21.6-31.8); Chloride 108 mmol/L (96-109); Glucose 123 mg/dL (70-110); Potassium 4.1 mmol/L (3.5-5.5); Sodium 140 mmol/L (135-145)
[2023-03-27] MEDS ORDERED: FAMOTIDINE 20 MG TAB PO SCH (09:00)
[2023-03-27] MEDS: HEPARIN SODIUM,PORCINE/PF 5,000 UNIT/0.5 ML SYRINGE SQ SCH (09:16)
[2023-03-27] MEDS ORDERED: predniSONE 20 MG TAB PO SCH (10:30)
--- NOTE | 2023-03-27 16:03 | P.PN ---
Subjective Patient is seen for f/u for PARI. Renal function has not improved with IV hydration and holding Celebrex and ARBs Urine eosinophil was positive suggesting AIN Patient denies any complaints today and wants to go home. 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 No rash. - Labs CBC & Chem 7: 03/24/23 17:30 03/27/23 05:25 Labs: Abnormal Lab Results - Last 24 Hours (Table) 03/25/23 03/27/23 Range/Units 09:33 05:25 BUN 32.5 H (9.0-27.0) mg/dL Creatinine 2.6 H (0.6-1.5) mg/dL Est GFR (CKD-EPI) 25 L (>=60) Glucose 123 H (70-110) mg/dL Hemoglobin A1c 6.1 H (<=6.0) % Calcium 8.6 L (8.7-10.3) mg/dL Assessment and Plan Assessment: 1. Acute kidney injury most likely related to Swan 2 inhibitor use in the setting of use of angiotensin receptor blockers with possible low blood pressure at home. High suspicion for AIN. Started prednisone. Discussed kidney bx if renal function does not improve. Continue off of Celebrex and continue off of losartan as well. Ultrasound shows no evidence of obstruction and UA shows 1+ protein and trace blood. 2. Hypertension with blood pressure Currently controlled. Continue off of angiotensin receptor blockers 3. Mild metabolic acidosis associated with acute kidney injury Plan: Start prednisone. Take with food. Continue off of ARBs and celebrex Check serologies Patient can be discharged. F/u as op in 2-3 days. May need kidney if renal function does not improve.
[2023-03-28 01:02] LABS: Hepatitis B Surface AB- Quant 3.5 mIU/mL; Hepatitis C IgG Antibody Nonreactive
[2023-03-28 01:44] LABS: DNA Double-Stranded POSITIVE
--- NOTE | 2023-03-28 22:13 | P.DS ---
Providers Date of admission: 03/24/23 20:23 Attending physician: Everett Miller Consults: 03/24/23 20:22 Consult Physician Urgent Consulting Provider: Inna Monique Consult Reason/Comments: Acute renal failure Do you want consulting provider notified?: Yes Primary care physician: Jasmeet Beaumont Hospital Course: Final Diagnosis -Acute renal failure: Possibly secondary to acute tubular necrosis may be secon karen to hypotension, component of nephrotoxicity due to losartan and celebrex use -PARI possible due to interstitial nephritis needs further work up outpatient -Hypertension currently normotensive -Osteoarthritis -Hyperglycemia borderline diabetes with hemoglobin A1C 6.1. -Daily alcohol use with one glass of wine Discharge Disposition Patient is stable for discharge home. Recommending close follow up with Dr. Monique on discharge in 2 to 3 daysfor further work up possible interstitial nephritis. Patient will be considered for renal biopsy if kidney function does not improve. Patient has been discharged on oral prednisone burst and taper. Recommend to repeat labs in 2 to 3 days to monitor renal function. Follow up with PCP. Patient to discontinue losartan and celebrex on discharge and jackie mmend to avoid NSAIDs. Hospital Course This is a 72-year-old male with history of hypertension, and osteoarthritis was sent in because of elevated creatinine patient BUN was around 44 and creatinine was 2.62. Patient denied any nausea vomiting diarrhea, patient recently had a creatinine of around 0.8. Patient was admitted for nephrology consultation and further work up. Urinalysis reveals 1+ protein and protein in the urine patient does have glucose in the urine as well. no casts were seen. Urine eosinophil level of 3. Patient was started on IV fluids with the minimal improvement of serum creatinine from 2.6-2.28. Patient denied any oliguria. Patient did did complain of for some episodes of dizziness whenever he gets up although his blood pressure is within normal limits. Orthostatic vitals were negative. Patient has no evidence of urinary retention. Renal ultrasound reveals nonobstructing left renal calculus, no hydronephrosis. Patient has been maintained on losartan for a long time as well as celebrex and NSAID therapy for his arthritis. Nephrology recommending to continue off losartan and nephrotoxic drugs and follow up in the office in 1 week for further work up possible diagnosis of interstitial nephritis. Additional work up reveals positive BRADY, and also positive double strand DNA antibody with a level of 15. Complement C3 and C4 are within normal limits. Hep B surface antigen is negative patient considered to not be immune to hep B, was found negative for hep C IgG antibody. Patient is asymptomatic no abdominal pain. No chest pain, no shortness of breath. He is hemodynamically stable. Creatinine on discharge 2.6. Patient is cleared for DC home with the above mentioned recommendations. Please see medication reconciliation for a list of current medication. Thank you for allowing us to participate in the care of this patient. The impression and plan of care has been dictated by Lo Ley, Nurse Practitioner as directed. Dr. Amie MD I have performed a history and physical examination and medical decision making of this patient, discussed the same with the dictator, and agree with the dictators assessment and plan as written, documented as a scribe. Based on total visit time, I have performed more than 50% of this visit. Patient Condition at Discharge: Stable Plan - Discharge Summary New Discharge Prescriptions: New methylPREDNISolone Dose Pack [Medrol Dose Pack] 4 mg PO DIRECTED #1 packet predniSONE [Deltasone] 40 mg PO DAILY #5 tab Famotidine [Pepcid] 20 mg PO DAILY #14 tab Discontinued Losartan Potassium [Cozaar] 50 mg PO DAILY Discharge Medication List Famotidine [Pepcid] 20 mg PO DAILY #14 tab 03/27/23 [Rx] methylPREDNISolone Dose Pack [Medrol Dose Pack] 4 mg PO DIRECTED #1 packet 03/27/23 [Rx] predniSONE [Deltasone] 40 mg PO DAILY #5 tab 03/27/23 [Rx] Follow up Appointment(s)/Referral(s): Inna Monique MD [STAFF PHYSICIAN] - 04/17/23 11:00 am Jasmeet Hidalgo DO [Primary Care Provider] - 1-2 days (The office put patient on a cancellation list and will call with a follow up appointment once one becomes available) Ambulatory/Diagnostic Orders: Basic Metabolic Panel [LAB.AMB] Time Frame: 3 Days, Location: None Selected Patient Instructions/Handouts: Acute Kidney Injury (DC), Low-Sodium Diet (DC) Activity/Diet/Wound Care/Special Instructions: Continue to follow a renal diet and monitor for urinary retention Continue off losartan, NSAIDs and celebrex Use acetaminophen based products for pain control Follow up with Dr Monique in the office in 1 weeks for further evaluation and work up Repeat labs in 2 to 3 days. Continue on oral prednisone 40 mg daily for 5 days than begin the oral medrol dose pack taper on the 6th day Follow up with your PCP in 1 to 2 days Discharge Disposition: HOME SELF-CARE
[2023-04-01 11:57] LABS: ANA Pattern SPK
[2023-04-02 15:59] LABS: Immunoglobulin M 93.8 mg/dL (40.0-280.0)
== END 2023-03-27 14:07 | disposition home or self-care (01) | DRG 683 ==
LOC: EC 16:45 → 4SSUR 20:23 → 5NMEDONC 03-25 16:57
PROVIDERS: ADMIT Hospitalist; ATTEND Hospitalist
DX: N17.0 Acute kidney failure with tubular necrosis (principal); E87.20 Acidosis, unspecified; I10 Essential (primary) hypertension; I95.9 Hypotension, unspecified; T46.5X5A Adverse effect of other antihypertensive drugs, initial encounter; T39.395A Adverse effect of other nonsteroidal anti-inflammatory drugs [NSAID], initial encounter; X58.XXXA Exposure to other specified factors, initial encounter; R76.8 Other specified abnormal immunological findings in serum; Z79.899 Other long term (current) drug therapy; M19.90 Unspecified osteoarthritis, unspecified site
CPT/HCPCS: 36415; 76770; 80048; 80053; 81001; 82570; 83036; 84300; 85025; 86038; 86039; 86160; 86225; 86255; 86334; 86706; 86803; 87205; 93005; 96360; 96361; 99285

== ENCOUNTER 2023-04-22 07:32 | Day surgery (SDC) | payer MEDICARE ==
[2023-04-20 10:07] LABS: Basophils % (A) 0 %; Eosinophils # (A) 0.2 k/uL (0-0.7); Eosinophils % (A) 5 %; HCT 40.8 % (39.0-53.0); Lymphocytes # (A) 0.5 k/uL (1.0-4.8); Lymphocytes % (A) 13 %; MCH 31.1 pg (25.0-35.0); MCHC 34.2 g/dL (31.0-37.0); MCV 90.9 fL (80.0-100.0); Mean Platelet Volume 7.2; Monocytes # (A) 0.3 k/uL (0-1.0); Monocytes % (A) 7 %; Neutrophils # (A) 2.8 k/uL (1.3-7.7); Neutrophils % (A) 74 %; Platelet Count 139 k/uL (150-450); RBC 4.49 m/uL (4.30-5.90); RDW 13.2 % (11.5-15.5); WBC 3.8 k/uL (3.8-10.6)
[2023-04-20 10:15] LABS: INR 0.9 (<1.2); Partial Thromboplastin Time 23.8 sec (22.0-30.0)
[2023-04-20 10:17] LABS: African American GFR (CKD) 39 (>60 ml/min/1.73 sqM); Anion Gap 9 mmol/L; Blood Urea Nitrogen 23 mg/dL (9-20); Carbon Dioxide 27 mmol/L (22-30); Chloride 103 mmol/L (98-107); Non-African American GFR(CKD) 34 (>60 ml/min/1.73 sqM); Potassium 3.7 mmol/L (3.5-5.1); Sodium 139 mmol/L (137-145)
[2023-04-22] MEDS ORDERED: DESMOPRESSIN ACETATE 24 MCG in SODIUM CHLORIDE 0.9% 50 ML IVPB ONE (09:15)
[2023-04-22 09:20] VITALS: RESP 18; TEMP 97.7
[2023-04-22] MEDS ORDERED: HYDROmorphone 0.5 MG/0.5 ML SYRINGE IVP PRN (09:21)
[2023-04-22] MEDS ORDERED: ALPRAZolam 0.25 MG TAB PO PRN (09:21)
--- NOTE | 2023-04-22 11:39 | CT ---
EXAMINATION TYPE: CT biopsy renal LT DATE OF EXAM: 04/22/2023 11:32 AM CLINICAL INDICATION:Male, 72 years old with history of N17.9 ACUTE KIDNEY FAILURE, UNSPECIFIED; Acute kidney failure COMPARISON: Ultrasound 03/17/2023. CT DLP: 1520 mGycm, Automated exposure control for dose reduction was used. Contrast used: mL of , none Oral contrast used: none ATTENDING: Dr. Pavel Boykin TECHNIQUE: CT guided percutaneous right kidney using coaxial method. One or more CT dose reduction strategies we re utilized during this examination. Total CT dose 1520 mGycm. FINDINGS: The procedure was explained to the patient including risks of bleeding, bruising, infection, damage t o nearby organs and need for additional therapy including potential surgery. All questions were answ ered and consent was obtained. The previous studies were reviewed. The patient was placed on the CT couch in the supine position. The overlying skin was marked and prepped using sterile method. Timeout was taken per protocol. Follo wing administration of local anesthesia a prone position. 18-gauge biopsy device was introduced in th e right kidney.. 318 gauge coaxial biopsies were then obtained. Following the procedure the needl e was removed and sterile dressing was applied to the percutaneous site. Post biopsy imaging demonst rated small perinephric hematoma. Patient was taken for postprocedure observation in stable condition . IMPRESSIONS: Status post percutaneous right inferior kidney random biopsy. Pathology results pending.
[2023-04-22 14:55] VITALS: BP 116/65; PULSE 73
== END 2023-04-22 14:50 | disposition home or self-care (01) ==
LOC: RADPROMAIN 07:32
PROVIDERS: ATTEND Internal Medicine
DX: N17.9 Acute kidney failure, unspecified (principal)
CPT/HCPCS: 86900; 86901; 80051; 82565; 84520; 85025; 85610; 85730; 86850; 36415 ×2; 50200; 77012; J2597

== ENCOUNTER 2023-11-06 13:10 | Observation (INO) | payer MEDICARE ==
--- NOTE | 2023-11-06 13:44 | ED ---
General Adult HPI - General Chief complaint: Chest Pain Stated complaint: Abnormal EKG Time Seen by Provider: 11/06/23 13:18 Source: patient, RN notes reviewed, old records reviewed Mode of arrival: ambulatory Limitations: no limitations - History of Present Illness Initial comments: 73 yo male presenting with chief complaint of jaw pain and chest tightness. Patient has no prior history of CAD. He was seen by his primary care for complaint of jaw pain radiating into the chest with chest discomfort. He was sent immediately to the emergency department for evaluation. Patient denies associated vomiting or diaphoresis. No arm pain or numbness. - Related Data Home Medications Medication Instructions Recorded Confirmed amLODIPine [Norvasc] 5 mg PO DAILY 04/09/23 11/06/23 Vitamin C(Unknown Dose) 1 tab PO DAILY 11/06/23 11/06/23 Vitamin E(Unknown Dose) 1 tab PO DAILY 11/06/23 11/06/23 Zinc Gluconate [Zinc] 50 mg PO DAILY 11/06/23 11/06/23 Allergies Allergy/AdvReac Type Severity Reaction Status Date / Time No Known Allergies Allergy Verified 11/06/23 14:31 Review of Systems ROS Statement: Those systems with pertinent positive or pertinent negative responses have been documented in the HPI. ROS Other: All systems not noted in ROS Statement are negative. Past Medical History Past Medical History: Hypertension, Osteoarthritis (OA), Renal Disease History of Any Multi-Drug Resistant Organisms: None Reported Additional Past Surgical History / Comment(s): neck fusion 2011 Past Psychological History: No Psychological Hx Reported Smoking Status: Former smoker Past Alcohol Use History: Occasional Past Drug Use History: None Reported General Exam Limitations: no limitations General appearance: alert, in no apparent distress Head exam: Present: atraumatic, normocephalic Eye exam: Present: normal appearance, PERRL ENT exam: Present: normal exam Neck exam: Present: normal inspection. Absent: tenderness, meningismus Respiratory exam: Present: normal lung sounds bilaterally. Absent: respiratory distress, wheezes Cardiovascular Exam: Present: regular rate, normal rhythm GI/Abdominal exam: Present: soft. Absent: distended, tenderness, guarding Extremities exam: Present: normal inspection, normal capillary refill Neurological exam: Present: alert, oriented X3, CN II-XII intact. Absent: motor sensory deficit Psychiatric exam: Present: normal affect, normal mood Skin exam: Present: warm, dry, intact Course Vital Signs 11/06/23 13:13 Temperature 98.2 F Pulse Rate 108 H Respiratory 20 Rate Blood Pressure 174/83 O2 Sat by Pulse 99 Oximetry Medical Decision Making - Medical Decision Making Was pt. sent in by a medical professional or institution (KARINE Low, CONDUIT WORKER, urgent care, hospital, or retirement...) When possible be specific @ -No Did you speak to anyone other than the patient for history (EMS, parent, family, police, friend...)? What history was obtained from this source @ -No Did you review nursing and triage notes (agree or disagree)? Why? @ -I reviewed and agree with nursing and triage notes Were old charts reviewed (outside hosp., previous admission, EMS record, old EKG, old radiological studies, urgent care reports/EKG's, retirement records)? Report findings @ -No old charts were reviewed Differential Diagnosis (chest pain, altered mental status, abdominal pain women, abdominal pain men, vaginal bleeding, weakness, fever, dyspnea, syncope, headache, dizziness, GI bleed, back pain, seizure, CVA, palpatations, mental health, musculoskeletal)? @ -[Differential Chest Pain: Stable Angina, Unstable Angina, STEMI, NSTEMI Aortic Dissection, Pneumothorax, Musculoskeletal, Esophageal Spasm GERD, Cholecystitis, Pancreatitis, Zoster, this is not meant to be an all-inclusive list. EKG interpreted by me (3pts min.). @ -Sinus rhythm rate of 99, [place] interval 137, QRS duration 100, QTc 386, incomplete right bundle branch block, I do not see any ST segment elevation. X-rays interpreted by me (1pt min.). @ -Chest x-ray negative for acute cardiopulmonary findings CT interpreted by me (1pt min.). @ -[None done U/S interpreted by me (1pt. min.). @ -None done What testing was considered but not performed or refused? (CT, X-rays, U/S, labs)? Why? @ -None What meds were considered but not given or refused? Why? @ -None Did you discuss the management of the patient with other professionals (professionals i.e. KARINE Low, CONDUIT WORKER, lab, RT, psych nurse, professor of social work, director clinical operations, teacher, principal gifts officer, director case management)? Give summary @ -Dr. Manzo Was smoking cessation discussed for >3mins.? @ -No Was critical care preformed (if so, how long)? @ -No Were there social determinants of health that impacted care today? How? (Homelessness, low income, unemployed, alcoholism, drug addiction, transportation, low edu. Level, literacy, decrease access to med. care, assisted, rehab)? @ -No Was there de-escalation of care discussed even if they declined (Discuss DNR or withdrawal of care, Hospice)? DNR status @ -No What co-morbidities impacted this encounter? (DM, HTN, Smoking, COPD, CAD, Cancer, CVA, ARF, Chemo, Hep., AIDS, mental health diagnosis, sleep apnea, morbid obesity)? @ -None Was patient admitted / discharged? Hospital course, mention meds given and route, prescriptions, significant lab abnormalities, going to OR and other pertinent info. @ -89-year-old male sent from primary care for evaluation of chest pain, jaw pain. Patient has no prior history of CAD. EKG without ST segment elevation. No associated dyspnea, no vomiting or diaphoresis. This is chest tightness with jaw pain. Chest x-ray is clear without acute cardiopulmonary findings. Patient has normal CBC, CMP showing elevated blood glucose without history of diabetes negative initial troponin. Patient will be observed for telemetry, serial cardiac enzymes, cardiology consultation. Undiagnosed new problem with uncertain prognosis? @ -No Drug Therapy requiring intensive monitoring for toxicity (Heparin, Nitro, Insulin, Cardizem)? @ -No Were any procedures done? @ -No Diagnosis/symptom? @ -[Chest pain rule out, hyperglycemia Acute, or Chronic, or Acute on Chronic? @Acute Uncomplicated (without systemic symptoms) or Complicated (systemic symptoms)? @ -Default Side effects of treatment? @ -No Exacerbation, Progression, or Severe Exacerbation? @ -No Poses a threat to life or bodily function? How? (Chest pain, [place], [place], pneumonia, PE, COPD, DKA, ARF, appy, cholecystitis, CVA, Diverticulitis, Homicidal, Suicid al, threat to staff... and all critical care pts) @yes, chest pain - Lab Data Result diagrams: 11/06/23 13:41 11/06/23 13:41 Lab Results 11/06/23 11/06/23 11/06/23 Range/Units 13:41 13:41 13:41 WBC 7.3 (3.8-10.6) k/uL RBC 4.89 (4.30-5.90) m/uL Hgb 15.3 (13.0-17.5) gm/dL Hct 44.3 (39.0-53.0) % MCV 90.6 (80.0-100.0) fL MCH 31.3 (25.0-35.0) pg MCHC 34.6 (31.0-37.0) g/dL RDW 13.5 (11.5-15.5) % Plt Count 173 (150-450) k/uL MPV 7.4 Neutrophils % 84 % Lymphocytes % 9 % Monocytes % 5 % Eosinophils % 1 % Basophils % 0 % Neutrophils # 6.1 (1.3-7.7) k/uL Lymphocytes # 0.7 L (1.0-4.8) k/uL Monocytes # 0.4 (0-1.0) k/uL Eosinophils # 0.1 (0-0.7) k/uL Basophils # 0.0 (0-0.2) k/uL PT 10.4 (10.0-12.5) sec INR 0.9 (<1.2) APTT 24.4 (22.0-30.0) sec Sodium 135 L (137-145) mmol/L Potassium 3.7 (3.5-5.1) mmol/L Chloride 103 (98-107) mmol/L Carbon Dioxide 22 (22-30) mmol/L Anion Gap 10 mmol/L BUN 21 H (9-20) mg/dL Creatinine 1.21 (0.66-1.25) mg/dL Est GFR (CKD-EPI)AfAm 68 (>60 ml/min/1.73 sqM) Est GFR (CKD-EPI)NonAf 58 (>60 ml/min/1.73 sqM) Glucose 310 H (74-99) mg/dL Calcium 9.1 (8.4-10.2) mg/dL Magnesium 1.9 (1.6-2.3) mg/dL Total Bilirubin 0.6 (0.2-1.3) mg/dL AST 26 (17-59) U/L ALT 21 (4-49) U/L Alkaline Phosphatase 52 (38-126) U/L Troponin I (0.000-0.034) ng/mL Total Protein 6.8 (6.3-8.2) g/dL Albumin 4.0 (3.5-5.0) g/dL 11/06/23 Range/Units 13:41 WBC (3.8-10.6) k/uL RBC (4.30-5.90) m/uL Hgb (13.0-17.5) gm/dL Hct (39.0-53.0) % MCV (80.0-100.0) fL MCH (25.0-35.0) pg MCHC (31.0-37.0) g/dL RDW (11.5-15.5) % Plt Count (150-450) k/uL MPV Neutrophils % % Lymphocytes % % Monocytes % % Eosinophils % % Basophils % % Neutrophils # (1.3-7.7) k/uL Lymphocytes # (1.0-4.8) k/uL Monocytes # (0-1.0) k/uL Eosinophils # (0-0.7) k/uL Basophils # (0-0.2) k/uL PT (10.0-12.5) sec INR (<1.2) APTT (22.0-30.0) sec Sodium (137-145) mmol/L Potassium (3.5-5.1) mmol/L Chloride (98-107) mmol/L Carbon Dioxide (22-30) mmol/L Anion Gap mmol/L BUN (9-20) mg/dL Creatinine (0.66-1.25) mg/dL Est GFR (CKD-EPI)AfAm (>60 ml/min/1.73 sqM) Est GFR (CKD-EPI)NonAf (>60 ml/min/1.73 sqM) Glucose (74-99) mg/dL Calcium (8.4-10.2) mg/dL Magnesium (1.6-2.3) mg/dL Total Bilirubin (0.2-1.3) mg/dL AST (17-59) U/L ALT (4-49) U/L Alkaline Phosphatase (38-126) U/L Troponin I <0.012 (0.000-0.034) ng/mL Total Protein (6.3-8.2) g/dL Albumin (3.5-5.0) g/dL Disposition Clinical Impression: Chest pain, Hyperglycemia Disposition: ADMITTED IP TO THIS HOSP Condition: Stable Is patient prescribed a controlled substance at d/c from ED?: No Referrals: Jasmeet Hidalgo DO [Primary Care Provider] - 1-2 days Time of Disposition: 14:41
[2023-11-06 13:49] LABS: Basophils % (A) 0 %; Eosinophils # (A) 0.1 k/uL (0-0.7); Eosinophils % (A) 1 %; HCT 44.3 % (39.0-53.0); HGB 15.3 gm/dL (13.0-17.5); Lymphocytes # (A) 0.7 k/uL (1.0-4.8); Lymphocytes % (A) 9 %; MCH 31.3 pg (25.0-35.0); MCHC 34.6 g/dL (31.0-37.0); MCV 90.6 fL (80.0-100.0); Mean Platelet Volume 7.4; Monocytes # (A) 0.4 k/uL (0-1.0); Monocytes % (A) 5 %; Neutrophils # (A) 6.1 k/uL (1.3-7.7); Neutrophils % (A) 84 %; Platelet Count 173 k/uL (150-450); RBC 4.89 m/uL (4.30-5.90); RDW 13.5 % (11.5-15.5); WBC 7.3 k/uL (3.8-10.6)
[2023-11-06 13:58] LABS: INR 0.9 (<1.2); Partial Thromboplastin Time 24.4 sec (22.0-30.0); Prothrombin Time 10.4 sec (10.0-12.5)
[2023-11-06 14:00] LABS: ALT 21 U/L (4-49); AST 26 U/L (17-59); African American GFR (CKD) 68 (>60 ml/min/1.73 sqM); Alkaline Phosphatase 52 U/L (38-126); Anion Gap 10 mmol/L; Blood Urea Nitrogen 21 mg/dL (9-20); Calcium 9.1 mg/dL (8.4-10.2); Carbon Dioxide 22 mmol/L (22-30); Chloride 103 mmol/L (98-107); Glucose 310 mg/dL (74-99); Magnesium 1.9 mg/dL (1.6-2.3); Non-African American GFR(CKD) 58 (>60 ml/min/1.73 sqM); Potassium 3.7 mmol/L (3.5-5.1); Sodium 135 mmol/L (137-145); Total Bilirubin 0.6 mg/dL (0.2-1.3); Total Protein 6.8 g/dL (6.3-8.2)
--- NOTE | 2023-11-06 14:09 | XR ---
EXAMINATION TYPE: XR chest 2V DATE OF EXAM: 11/06/2023 COMPARISON: 04/22/2021 HISTORY: Shortness of breath TECHNIQUE: Frontal and lateral views of the chest are obtained. FINDINGS: Scattered senescent parenchymal changes noted. Hyperinflation compatible with COPD. No evidence for infiltrate. No evidence for atelectasis. Heart size is stable. Mediastinal structures are stable and grossly unremarkable. No evidence for hilar prominence. Degenerative changes dorsal spine. IMPRESSION: 1. No evidence for acute pulmonary disease.
[2023-11-06] MEDS ORDERED: NALOXONE 0.4 MG/ML 1 ML VIAL IV PRN (14:35)
[2023-11-06] MEDS: SODIUM CHLORIDE 0.9% 500 ML 500 ML IV ONE (14:54)
[2023-11-06] MEDS: SODIUM CHLORIDE 0.9% 1,000 ML IV SCH (14:54)
[2023-11-06] MEDS: ASPIRIN 325 MG TAB PO STA (15:39)
[2023-11-06] MEDS: ENOXAPARIN 40 MG/0.4 ML SYRINGE SQ SCH (17:05)
[2023-11-07] MEDS: ACETAMINOPHEN TAB 325 MG TAB PO PRN (06:53)
[2023-11-07 07:53] VITALS: RESP 15
[2023-11-07] MEDS: amLODIPine 5 MG TAB PO SCH (09:21)
[2023-11-07 14:49] VITALS: BP 136/69; PULSE 86; TEMP 98
[2023-11-07 17:21] LABS: Glucose,Whole Blood 137 mg/dL (70-110)
--- NOTE | 2023-11-07 17:23 | P.HPIM ---
History of Present Illness H&P Date: 11/07/23 Chief Complaint: Throat pain This is a pleasant 73-year-old patient who follows with Dr. Hidalgo. Chronic stable medical conditions include hypertension, osteoarthritis, but hard of hearing. Yesterday patient felt a strange sensation in the upper throat. I it felt like a thickening. Then pain started. Then he felt the discomfort going across the collarbone. Just did not feel right. No dizziness no lightheadedness no shortness of breath. Did not feel right so he decided to come to the ER. Patient otherwise rather active with no prior cardiac history. Troponins were negative. Review of systems: GEN.: None EYES: None HEENT: None NECK: None RESPIRATORY: None CARDIOVASCULAR: As above GASTROINTESTINAL: None GENITOURINARY: None MUSCULOSKELETAL: Arthritis e LYMPHATICS: None HEMATOLOGICAL: None PSYCHIATRY: None NEUROLOGICAL: None Social history: Retired. Used to be an [employer] business. Does not smoke. No alcohol. Physical examination: VITAL SIGNS: 98.1, 77, 15, 145 x 79, 95% room air GENERAL: BMI 26.1, reclining bed awake comfortable. EYES: Pupils equal. Conjunctiva holly l. HEENT: External appearance of nose and ears normal, oral cavity grossly normal. NECK: JVD not raised; masses not palpable. HEART: First and second heart sounds are normal; no edema. LUNGS: Respiratory rate normal; clear to auscultation. ABDOMEN: Soft, nontender, liver spleen not palpable, no masses palpable. PSYCH: Alert and oriented x3; mood and affect holly l. MUSCULOSKELETAL:No Clubbing/cyanosis;muscles-grossly intact. OA NEUROLOGICAL: Cranial nerves grossly intact; no facial asymmetry, power and sensation grossly intact. LYMPHATICS: No lymph nodes palpable in the axilla and neck INVESTIGATIONS, reviewed in the clinical context: November 06: White count 7.3 hemoglobin 15.3 platelets 173 sodium 135 potassium 3.7 creatinine 1.21 Troponin I less than 0.012 x 3 EKG tracing personally reviewed by me-normal sinus rhythm. Nonspecific ST/T wave changes. Chest x-ray film personally reviewed by me: No obvious abnormality Assessment plan: -Anterior chest wall pain including pain in the neck going across the collarbone. Associated with not feeling well. EKG nonspecific. Troponin negative. Could be unstable angina. Aspirin. Telemetry. Consult cardiology -Essential hypertension Amlodipine 5 mg -Hard of hearing -Primary osteoarthritis Tylenol as needed Care was discussed with the patient. Await cardiology input. Past Medical History Past Medical History: Hypertension, Osteoarthritis (OA), Renal Disease History of Any Multi-Drug Resistant Organisms: None Reported Additional Past Surgical History / Comment(s): neck fusion 2011 Past Psychological History: No Psychological Hx Reported Smoking Status: Former smoker Past Alcohol Use History: Occasional Additional Past Alcohol Use History / Comment(s): one drinks one drink with his for dinner usually a glass of wine Past Drug Use History: None Reported Medications and Allergies Home Medications Medication Instructions Recorded Confirmed Type amLODIPine [Norvasc] 5 mg PO DAILY 04/09/23 11/06/23 History Vitamin C(Unknown Dose) 1 tab PO DAILY 11/06/23 11/06/23 History Vitamin E(Unknown Dose) 1 tab PO DAILY 11/06/23 11/06/23 History Zinc Gluconate [Zinc] 50 mg PO DAILY 11/06/23 11/06/23 History Aspirin 81 mg PO DAILY #30 tab 11/07/23 Rx Nitroglycerin Sl Tabs [Nitrostat] 0.4 mg SUBLINGUAL Q5M PRN #25 tab 11/07/23 Rx Allergies Allergy/AdvReac Type Severity Reaction Status Date / Time No Known Allergies Allergy Verified 11/06/23 14:31 Physical Exam Vitals: Vital Signs Temp Pulse Pulse Resp BP BP BP 11/07/23 07:00 98.1 F 77 15 145/79 11/07/23 01:19 99.6 F 95 18 109/61 11/06/23 19:31 99.2 F 106 H 16 138/68 11/06/23 16:22 98.6 F 108 H 16 139/87 11/06/23 15:01 89 18 161/81 11/06/23 13:13 98.2 F 108 H 20 174/83 Pulse Ox 11/07/23 07:00 95 11/07/23 01:19 96 11/06/23 19:31 98 11/06/23 16:22 98 11/06/23 15:01 97 11/06/23 13:13 99 Intake and Output 11/06/23 11/07/23 11/07/23 22:59 06:59 14:59 Intake Total 118 Balance 118 Intake: Oral 118 Other: # Voids 2 1 Weight 82.554 kg Results CBC & Chem 7: 11/06/23 13:41 11/06/23 13:41 Labs: Abnormal Lab Results - Last 24 Hours (Table) 11/06/23 11/06/23 Range/Units 13:41 13:41 Lymphocytes # 0.7 L (1.0-4.8) k/uL Sodium 135 L (137-145) mmol/L BUN 21 H (9-20) mg/dL Glucose 310 H (74-99) mg/dL Thrombosis Risk Factor Assmnt - Choose All That Apply Each Risk Factor Represents 3 Points: Age 75 years or older Thrombosis Risk Factor Assessment Total Risk Factor Score: 3 Thrombosis Risk Factor Assessment Level: Moderate Risk
--- NOTE | 2023-11-07 17:27 | P.DS ---
Providers Date of admission: 11/06/23 14:35 Expected date of discharge: 11/07/23 Attending physician: Jean Manzo Consults: 11/06/23 14:35 Consult Physician Routine Consulting Provider: Deb Prasad Consult Reason/Comments: CP Do you want consulting provider notified?: Yes Primary care physician: Jasmeet [facility] Course: Chief Complaint: Throat pain This is a pleasant 73-year-old patient who follows with Dr. Hidalgo. Chronic stable medical conditions include hypertension, osteoarthritis, but hard of hearing. Yesterday patient felt a strange sensation in the upper throat. I it felt like a thickening. Then pain started. Then he felt the discomfort going across the collarbone. Just did not feel right. No dizziness no lightheadedness no shortness of breath. Did not feel right so he decided to come to the ER. Patient otherwise rather active with no prior cardiac history. Troponins were negative. Patient was seen by cardiology Dr. Mckeon. Cleared for discharge. Outpatient stress test. Social history: Retired. Used to be an [employer] business. Does not smoke. No alcohol. Physical examination: VITAL SIGNS: 98.1, 77, 15, 145 x 79, 95% room air GENERAL: BMI 26.1, reclining bed awake comfortable. EYES: Pupils equal. Conjunctiva holly l. HEENT: External appearance of nose and ears normal, oral cavity grossly normal. NECK: JVD not raised; masses not palpable. HEART: First and second heart sounds are normal; no edema. LUNGS: Respiratory rate normal; clear to auscultation. ABDOMEN: Soft, nontender, liver spleen not palpable, no masses palpable. PSYCH: Alert and oriented x3; mood and affect holly l. MUSCULOSKELETAL:No Clubbing/cyanosis;muscles-grossly intact. OA NEUROLOGICAL: Cranial nerves grossly intact; no facial asymmetry, power and sensation grossly intact. LYMPHATICS: No lymph nodes palpable in the axilla and neck INVESTIGATIONS, reviewed in the clinical context: November 06: White count 7.3 hemoglobin 15.3 platelets 173 sodium 135 potassium 3.7 creatinine 1.21 Troponin I less than 0.012 x 3 EKG tracing personally reviewed by me-normal sinus rhythm. Nonspecific ST/T wave changes. Chest x-ray film personally reviewed by me: No obvious abnormality Assessment plan: -Anterior chest wall pain including pain in the neck going across the collarbone. Associated with not feeling well. EKG nonspecific. Troponin negative. Could be atypical unstable angina. Aspirin. Sublingual nitroglycerin Seen by cardiology Dr. Steve. For outpatient stress test -Essential hypertension Amlodipine 5 mg -Hard of hearing -Primary osteoarthritis Tylenol as needed Disposition: Home Plan - Discharge Summary Discharge Rx Participant: No New Discharge Prescriptions: New Aspirin 81 mg PO DAILY #30 tab Nitroglycerin Sl Tabs [Nitrostat] 0.4 mg SUBLINGUAL Q5M PRN #25 tab PRN Reason: Chest Pain Continue amLODIPine [Norvasc] 5 mg PO DAILY Zinc Gluconate [Zinc] 50 mg PO DAILY Vitamin C(Unknown Dose) 1 tab PO DAILY Vitamin E(Unknown Dose) 1 tab PO DAILY Discharge Medication List amLODIPine [Norvasc] 5 mg PO DAILY 04/09/23 [History] Vitamin C(Unknown Dose) 1 tab PO DAILY 11/06/23 [History] Vitamin E(Unknown Dose) 1 tab PO DAILY 11/06/23 [History] Zinc Gluconate [Zinc] 50 mg PO DAILY 11/06/23 [History] Aspirin 81 mg PO DAILY #30 tab 11/07/23 [Rx] Nitroglycerin Sl Tabs [Nitrostat] 0.4 mg SUBLINGUAL Q5M PRN #25 tab 11/07/23 [Rx] Follow up Appointment(s)/Referral(s): Tim Steve MD [Medical Doctor] - 1 Week Jasmeet Hidalgo DO [Primary Care Provider] - 1-2 days
--- NOTE | 2023-11-07 17:39 | P.CRDCN ---
History of Present Illness Consult date: 11/07/23 History of present illness: HISTORY OF PRESENTING ILLNESS 73-year-old with past medical history of hypertension on amlodipine and aspirin presented to the hospital because of upper chest and throat heaviness like sensation and achiness. This is not related to activity or rest. He denies any diaphoresis lightheadedness dizziness palpitations or shortness of breath. Patient reported that he has been physically active over last 1 to 2 weeks without any limitations. His ECG was within normal limits with no evidence of ischemia by ST segment analysis. It showed normal sinus rhythm. His labs showed a creatinine of 1.2, troponin x 3 were negative, admission gluc ose was 310. Patient has never been diagnosed with diabetes in the past. REVIEW OF SYSTEMS 14 point review of system is negative except what is mentioned above in HPI. PHYSICAL EXAMINATION Vital signs reviewed. Head: Normocephalic. Eyes: Sclerae nonicteric. Neck: Brisk carotid upstroke, no jugular venous distention. Lungs: Clear to auscultation. Heart: Regular rate and rhythm, S1-S2, no S3, no murmur or rub. Abdomen: Soft nontender, positive bowel sounds. Extremities: No edema, intact distal pulses. Neuro: Alert, oritented, no focal deficits. Detailed neuro exam was not performed. ASSESSMENT Atypical chest pain, ruled out of acute coronary syndrome Neck heaviness Essential hypertension Hyperglycemia glucose 310 prior no diagnosis of diabetes PLAN Patient is cleared to be discharged from cardiovascular standpoint. Patient needs outpatient follow-up for an echocardiogram and a treadmill echo stress test Outpatient HbA1c and lipid panel Tim Steve MD, FACC, RPVI Thank you for allowing [facility] to participate in this patient's care. Feel free to reach out in case of any followup questions. Past Medical History Past Medical History: Hypertension, Osteoarthritis (OA), Renal Disease History of Any Multi-Drug Resistant Organisms: None Reported Additional Past Surgical History / Comment(s): neck fusion 2011 Past Psychological History: No Psychological Hx Reported Smoking Status: Former smoker Past Alcohol Use History: Occasional Additional Past Alcohol Use History / Comment(s): one drinks one drink with his for dinner usually a glass of wine Past Drug Use History: None Reported Medications and Allergies Home Medications Medication Instructions Recorded Confirmed Type amLODIPine [Norvasc] 5 mg PO DAILY 04/09/23 11/06/23 History Vitamin C(Unknown Dose) 1 tab PO DAILY 11/06/23 11/06/23 History Vitamin E(Unknown Dose) 1 tab PO DAILY 11/06/23 11/06/23 History Zinc Gluconate [Zinc] 50 mg PO DAILY 11/06/23 11/06/23 History Aspirin 81 mg PO DAILY #30 tab 11/07/23 Rx Nitroglycerin Sl Tabs [Nitrostat] 0.4 mg SUBLINGUAL Q5M PRN #25 tab 11/07/23 Rx Allergies Allergy/AdvReac Type Severity Reaction Status Date / Time No Known Allergies Allergy Verified 11/06/23 14:31 Physical Exam Vitals: Vital Signs Temp Pulse Resp BP BP Pulse Ox 11/07/23 14:46 98.0 F 86 15 136/69 97 11/07/23 07:00 98.1 F 77 15 145/79 95 11/07/23 01:19 99.6 F 95 18 109/61 96 11/06/23 19:31 99.2 F 106 H 16 138/68 98 Intake and Output 11/07/23 11/07/23 11/07/23 06:59 14:59 22:59 Other: # Voids 1 3 # Bowel Movements 0 Results 11/06/23 13:41 11/06/23 13:41 Cardiac Enzymes 11/06/23 11/06/23 Range/Units 17:10 19:49 Troponin I <0.012 <0.012 (0.000-0.034) ng/mL Current Medications Generic Name Dose Route Start Last Admin Trade Name Freq PRN Reason Stop Dose Admin Acetaminophen 650 mg 11/06/23 14:35 11/07/23 06:53 Acetaminophen Tab 325 Mg Tab PO 650 mg Q6HR PRN Administration Mild Pain or Fever > 100.5 Amlodipine Besylate 5 mg 11/07/23 09:00 11/07/23 09:21 Amlodipine 5 Mg Tab PO 5 mg DAILY ASIM Administration Enoxaparin Sodium 40 mg 11/06/23 16:30 11/07/23 09:21 Enoxaparin 40 Mg/0.4 Ml Syringe SQ 40 mg DAILY ASIM Administration Sodium Chloride 1,000 mls @ 75 mls/hr 11/06/23 14:45 11/07/23 05:18 Saline 0.9% IV 75 mls/hr .[id number] ASIM Administration Naloxone HCl 0.2 mg 11/06/23 14:35 Naloxone 0.4 Mg/Ml 1 Ml Vial IV Q2M PRN Opioid Reversal Intake and Output 11/07/23 11/07/23 11/07/23 06:59 14:59 22:59 Other: # Voids 1 3 # Bowel Movements 0 11/06/23 13:41 11/06/23 13:41
== END 2023-11-07 17:40 | disposition home or self-care (01) ==
LOC: EC 13:10 → 6NMEDSUR 14:35
PROVIDERS: ADMIT Hospitalist; ATTEND Hospitalist
DX: R07.89 Other chest pain (principal); R94.31 Abnormal electrocardiogram [ECG] [EKG]; R73.9 Hyperglycemia, unspecified; H91.90 Unspecified hearing loss, unspecified ear; M19.90 Unspecified osteoarthritis, unspecified site; I10 Essential (primary) hypertension; Z87.891 Personal history of nicotine dependence; Z79.82 Long term (current) use of aspirin; Z79.899 Other long term (current) drug therapy; Z98.1 Arthrodesis status
CPT/HCPCS: 96361; 96372; 99285; 36415; 93005; 80053; 83735; 84484; 85025; 85610; 85730; 71046; G0378 ×2; J1650 ×2; 96360

== ENCOUNTER → 2023-12-07 | Outpatient (CLI) | payer MEDICARE ==
--- NOTE | 2023-12-07 10:13 | CA ---
Transthoracic Echo Report Name: Phong Ruff Age: 73 Gender: M : 1950 Exam Date: 12/07/2023 07:42 Exam Location: [facility] Ht (in): 70 Wt (lb): 180 Ordering Physician: Jasmeet Hidalgo DO Attending/Referring Phys: Jasmeet Hidalgo DO [employer] Machine Operator Lashell Hurst RDCS Procedure CPT: Indications: R07.89 other chest pain Cardiac Hx: Technical Quality: Fair Contrast 1: Total Dose (mL): Contrast 2: Total Dose (mL): MEASUREMENTS (Male / Female) Normal Values 2D ECHO LV Diastolic Diameter PLAX 4.5 cm 4.2 - 5.9 / 3.9 - 5.3 cm LV Systolic Diameter PLAX 3.2 cm IVS Diastolic Thickness 1.2 cm 0.6 - 1.0 / 0.6 - 0.9 cm LVPW Diastolic Thickness 1.1 cm 0.6 - 1.0 / 0.6 - 0.9 cm LV Relative Wall Thickness 0.5 RV Internal Dim ED PLAX 3.9 cm LA Volume 57.3 cm??? 18 - 58 / 22 - 52 cm??? LA Volume Index 28.4 cm???/m??? 16 - 28 cm???/m??? M-MODE Aortic Root Diameter MM 3.0 cm LA Systolic Diameter MM 2.6 cm LA Ao Ratio MM 0.9 AV Cusp Separation MM 1.8 cm DOPPLER AV Peak Velocity 168.0 cm/s AV Peak Gradient 11.3 mmHg AV Mean Velocity 104.4 cm/s AV Mean Gradient 5.1 mmHg AV Velocity Time Integral 29.4 cm LVOT Peak Velocity 112.8 cm/s LVOT Peak Gradient 5.1 mmHg LVOT Velocity Time Integral 20.4 cm MV Area PHT 3.4 cm??? Mitral E Point Velocity 84.2 cm/s Mitral A Point Velocity 79.3 cm/s Mitral E to A Ratio 1.1 MV Deceleration Time 225.7 ms MV E' Velocity 9.0 cm/s Mitral E to MV E' Ratio 9.4 TR Peak Velocity 229.1 cm/s TR Peak Gradient 21.0 mmHg Right Ventricular Systolic Press 25.1 mmHg FINDINGS Left Ventricle Mildly increased left ventricular wall thickness. Left ventricular cavity size normal. Normal left ventricular systolic function with no obvious regional wall motion abnormalities. Left ventricular ejection fraction is estimated at 55-60 %. Right Ventricle Mild right ventricular dilatation. Right ventricular systolic pressure within normal limits. Normal right ventricular global systolic function. Right Atrium Normal right atrial size. Left Atrium Normal left atrial size. Mitral Valve Structurally normal mitral valve. Mild to moderate mitral regurgitation. Aortic Valve No aortic valve stenosis or regurgitation. Tricuspid Valve Structurally normal tricuspid valve. Mild to moderate tricuspid regurgitation. Pulmonic Valve Structurally normal pulmonic valve. Pericardium No pericardial effusion. Aorta Normal size aortic root and proximal ascending aorta. CONCLUSIONS Normal LV systolic function [id number] mitral regurgitation Mild to moderate tricuspid regurgitation Normal pulmonary artery systolic pressure Previewed by: Dr. Tavares Alfaro MD (Electronically Signed) Final Date: 07 December 2023 10:12
--- NOTE | 2023-12-07 11:23 | CA ---
Stress Echo Report Phong Ruff Age: 73 Gender: M : 1950 Exam Date: 12/07/2023 08:15 Exam Location: [facility] Ht (in): 70 Wt (lb): 180 Ordering Physician: Jasmeet Hidalgo DO Referring Physician: Jasmeet Hidalgo DO Career Advisor: Weston Choi Technologist Procedure CPT: Indication: R07.89 other chest pain ICD-9 Codes: Rhythm: Patient History: Cardiac Medications: Medications in past 24 hours: Contrast: N/A Stress Results Protocol: Babatunde Total dose(mL): NA Exercise Duration (min:sec): 7:[address] Depression (mm): Angina Score: Escobar Score: METS: 8.3 Resting HR: 76 Resting BP: 139 / 77 Peak HR: 140 Peak BP: 153 / 71 Max Predicted HR: 145 97 % Max Predicted HR Target HR: 123 Double Product: [id number] Stress Summary: BP Response: Reason for Termination: Cardiac Symptoms: ECG Analysis Resting ECG: Stress ECG: Arrhythmia: Echo Analysis Resting Echo: Peak Echo Analysis: MEASUREMENTS (Male/Female) Normal Values CONCLUSIONS Good exercise tolerance. The patient exercised for 7 minutes on Babatunde protocol Good augmentation and a blood pressure and heart rate Normal electrocardiogram and echocardiogram in response to exercise Dr. Tavares Alfaro MD (Electronically Signed) Final Date: 07 December 2023 11:23
== END | disposition home or self-care (01) ==
LOC: RADECHMAIN 08:01
PROVIDERS: ATTEND Family Medicine
DX: I34.0 Nonrheumatic mitral (valve) insufficiency (principal); I36.1 Nonrheumatic tricuspid (valve) insufficiency; R07.89 Other chest pain
CPT/HCPCS: 93306; 93351